=== PATIENT | male | born 1995 | race Hispanic/Latino ===

== ENCOUNTER 2020-07-07 19:20 | Emergency (ER) | payer OTHER ==
[~2020-07-07] VITALS: Ht 172.7 cm; Wt 77.1 kg
--- NOTE | 2020-07-07 20:13 | Diagnostic Imaging Report ---
HAND 3+ VIEWS LEFT - 3 views HISTORY: Pain COMPARISON: None available. IMPRESSION: Mildly displaced fracture of the distal 5th metacarpal with associated soft tissue swelling. Signed by: Dr. Chandrakant Hernandez MD on 07/07/2020 8:10 PM
--- NOTE | 2020-07-07 20:15 | Emergency Department Note ---
History of Present Illnes History of Present Illness Chief Complaint: Extremity Trauma/Pain History of Present Illness This is a 25 year old male presents to ED with edema, pain, bruising to left hand; pt reports struck wall with fist when anxious at approx 1000 am this morning;. 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 Any updates have been documented here. Past Medical History Recent Fever: No Clinical Suspicion of Infectio: No New/Unexplained Change in Ment: No Past Medical History: None Past Surgical History: None Social History Smoking Cessation: Never Smoker Counseling Performed: No Alcohol Use: None Any Illegal Drug Use: No Other Any Pre-Existing Lines (PICC,: No Review of Systems Review of Systems Constitutional: Reports no symptoms EENTM: Reports no symptoms Cardiovascular: Reports no symptoms Respiratory: Reports no symptoms Gastrointestinal: Reports no symptoms Genitourinary: Reports no symptoms Musculoskeletal: Reports as per HPI Integumentary: Reports no symptoms Neurological: Reports no symptoms Psychological: Reports no symptoms Endocrine: Reports no symptoms Hematological/Lymphatic: Reports no symptoms Review of other systems: All other systems negative Physical Exam Related Data Allergies: Coded Allergies: No Known Allergies (Unverified , 07/07/20) Triage Vital Signs Vital Signs Date Time Temp Pulse Resp B/P (MAP) Pulse Ox O2 Delivery O2 Flow Rate FiO2 07/07/20 19:25 98.8 80 17 126/81 99 Room Air Vital signs reviewed: Yes Physical Exam CONSTITUTIONAL Constitutional: Present well-developed, Present well-nourished; Absent distressed HENT HENT: Present normocephalic, Present atraumatic, Present oropharynx clear/moist, Present nose normal HENT L/R: Present left ext ear normal, Present right ext ear normal EYES Eyes: Reports PERRL, Reports conjunctivae normal NECK Neck: Present ROM normal PULMONARY Pulmonary: Present effort normal, Present breath sounds normal CARDIOVASCULAR Cardiovascular: Present regular rhythm, Present heart sounds normal, Present capillary refill normal, Present normal rate GASTROINTESTINAL Abdominal: Present soft, Present nontender, Present bowel sounds normal GENITOURINARY Genitourinary: Present exam deferred SKIN Skin: Present warm, Present dry MUSCULOSKELETAL pt with swelling and tenderness to distal fifth metacarpal dorsal aspect, full rom is present, pulses intact, cap refill less than 2 seconds NEUROLOGICAL Neurological: Present alert, Present oriented x 3, Present no gross motor or sensory deficits PSYCHOLOGICAL Psychological: Present mood/affect normal, Present judgement normal Procedures Orthopedic Splinting/Casting Injury: Injury #1 Side: left Upper exremity injury location: hand Upper extremity immobilizer: ulnar gutter Assessment & Plan Medical Decision Making MDM pt with pain and swelling to left hand xray ordered to eval for fracture pt with boxer's fracture, splint applied referred to dr roberts for follow up Assessment & Plan Final Impression: (1) Closed boxer's fracture Depart Disposition: HOME, SELF-CARE Last Vital Signs Date Time Temp Pulse Resp B/P (MAP) Pulse Ox O2 Delivery O2 Flow Rate FiO2 07/07/20 19:25 98.8 80 17 126/81 99 Room Air WILFRID ELIZABETH MD Jul 07, 2020 20:15
--- OUTSIDE RECORDS SUMMARY | 2020-07-07 20:23 | XMS REPORT | Continuity of Care Document ---
Author Author [facility] Organization [facility] Address [address] [place] [address] Phone Unavailable Care Team Providers Care Health Education Teacher Name Role Phone Jose ELIZABETH Attphysilvia Unavailable Problems This patient has no known problems. Allergies, Adverse Reactions, Alerts This patient has no known allergies or adverse reactions. Medications This patient has no known medications. Procedures This patient has no known procedures. Results Test Description Test Time Test Comments Results Result Comments Source HAND 3+ VIEWS LEFT 2020-07-07 20:09:00 [facility] CENTER[facility]: [facility] : 1995 Sex: M [place] [id number] Patient Name: [facility] MR #: [id number] : 1995 Age/Sex: 25/M Req #: [id number] [facility] Physician: Ordered by: WILFRID ELIZABETH MD Report #: [id number] Location: ER Room/Bed: Procedure: [id number] DX/HAND 3+ VIEWS LEFT Exam Date: 07/07/20 Exam Time: 1935 REPORT STATUS: Signed HAND 3+ VIEWS LEFT - 3 views HIST ORY: Pain COMPARISON: None available. IMPRESSION: Mildly displaced fracture of the distal 5th metacarpal with associated soft tissue swelling. Signed by: Dr. Chandrakant Dunlap MD on 07/07/2020 8:10 PM Dictated By: CHANDRAKANT DUNLAP MD 09 Transcribed By: MARCUS on 07/07/202009 COPY TO: WILFRID ELIZABETH MD
== END 2020-07-07 21:17 | disposition home or self-care (01) ==
LOC: ER 20:21
DX: S62.307A Unspecified fracture of fifth metacarpal bone, left hand, initial encounter for closed fracture (principal); W22.09XA Striking against other stationary object, initial encounter; Y92.008 Other place in unspecified non-institutional (private) residence as the place of occurrence of the external cause
CPT/HCPCS: 99283